=== PATIENT | female | born 1975 | race Caucasian/White ===

== ENCOUNTER 2020-07-22 15:19 | Emergency (ER) | payer BC, OTHER ==
[~2020-07-22] VITALS: Ht 165.1 cm; Wt 65.8 kg
--- NOTE | 2020-07-22 16:00 | NUR ---
FOR MEDICAL CLEARANCE FRM DETOX. C/O FEELING TIRED. PATIENT A/OX4, BREATHING EVEN AND UNLABORED, NO SOB NOTED, NEEDS ATTENDED, KEPT COMFORTABLE.
--- NOTE | 2020-07-22 16:26 | NUR ---
Patient denies any complaint. no distress noted. Given a juice box and crackers.
--- NOTE | 2020-07-22 17:08 | NUR ---
Patient discharged to home in stable condition. Written and verbal after care instructions given. Patient verbalizes understanding of instruction.
[2020-07-22 17:09] VITALS: BP 119/69
== END 2020-07-22 17:09 | disposition home or self-care (01) ==
LOC: ER 15:31
DX: I10 Essential (primary) hypertension (principal)